=== PATIENT | female | born 1985 | race American Indian/Alaskan Native ===

== ENCOUNTER 2018-11-26 09:12 | Outpatient (CLI) | payer MEDICAID ==
[2018-11-26 09:39] VITALS: BP 105/72
[2018-11-26] MEDS ORDERED: LACTATED RINGERS 500 ML IV ONE (10:17)
[2018-11-26 10:36] LABS: Bilirubin,Urine NEG (Negative); Blood,Urine NEG (Negative); Color,Urine Yellow (Yellow); Mucus,Urine 2+ /HPF; Protein,Urine <15 mg/dL mg/dL (Negative)
[2018-11-26 10:43] LABS: Amphetamine Screen,Urine PRESUMPTIVE NEGATIVE; Benzodiazepines Screen,Urine PRESUMPTIVE NEGATIVE; Cocaine Screen,Urine PRESUMPTIVE NEGATIVE; Methadone Screen,Urine PRESUMPTIVE NEGATIVE; Opiate Screen,Urine PRESUMPTIVE NEGATIVE
[2018-11-26 10:59] LABS: Cannabinoid Screen,Urine PRESUMPTIVE POSITIVE
== END 2018-11-26 11:13 | disposition home or self-care (01) ==
LOC: TRG 09:12
PROVIDERS: ATTEND Obstetrics & Gynecology
DX: O47.02 False labor before 37 completed weeks of gestation, second trimester (principal); Z3A.20 20 weeks gestation of pregnancy
CPT/HCPCS: 80307; 81001